=== PATIENT | male | born 1990 | race Caucasian/White ===

== ENCOUNTER 2016-10-28 13:49 | Emergency (ER) | payer BC ==
[2016-10-28 13:57] VITALS: BP 115/74
[2016-10-28] MEDS ORDERED: Ketorolac 60 MG/2 ML SDV IM ONE (14:06)
--- NOTE | 2016-10-28 14:14 | EDM.PDOC ---
ED HPI GENERAL MEDICAL PROBLEM - General Chief Complaint: General Stated Complaint: AMBULANCE Time Seen by Provider: 10/28/16 14:05 Source of Information: Reports: Patient History Limitations: Reports: No limitations - History of Present Illness INITIAL COMMENTS - FREE TEXT/NARRATIVE: History of present illness: [25-year-old male presenting with complaints of low back pain. Patient indicated he was sitting on the toilet and had a BM, and upon standing he had a crushing pain to his lumbar sacral region precluding him from bearing weight on his left leg. Patient indicates that the pain has never resolved it at this 2 or 3 and pressure at any time he increase his weight of his torso over his legs and balance stance the pain immediately starts increasing. Patient denies loss of bladder or bowel.] Review of systems: As per history of present illness and below otherwise all systems reviewed and negative. Past medical history: As per history of present illness and as reviewed below otherwise noncontributory. Surgical history: As per history of present illness and as reviewed below otherwise noncontributory. Social history: No reported history of drug or alcohol abuse. Family history: As per history of present illness and as reviewed below otherwise noncontributory. Physical exam: HEENT: Atraumatic, normocephalic, pupils reactive, negative for conjunctival pallor or scleral icterus, mucous membranes moist, throat clear, neck supple, nontender, trachea midline. Lungs: Clear to auscultation, breath sounds equal bilaterally, chest nontender. Heart: S1S2, regular, negative for clicks, rubs, or JVD. Abdomen: Soft, nondistended, nontender. Negative for masses or hepatosplenomegaly. Negative for costovertebral tenderness. Pelvis: Stable nontender. Genitourinary: Deferred. Rectal: Deferred. Extremities: Atraumatic, negative for cords or calf pain. Neurovascular unremarkable. Neuro: Awake, alert, oriented. Cranial nerves II through XII unremarkable. Cerebellum unremarkable. Motor and sensory unremarkable throughout. Exam nonfocal. Diagnostics: [X-ray of lumbar and sacral spines] Therapeutics: [60 mg IM] Impression: [back pain] Plan: [Norflex, with brief run] Definitive disposition and diagnosis as appropriate pending reevaluation and review of above. back Pain Score (Numeric/FACES): 2 - Related Data Allergies Allergy/AdvReac Type Severity Reaction Status Date / Time No Known Allergies Allergy Verified 10/28/16 13:53 Home Meds: Home Meds Orphenadrine [Norflex] 100 mg PO BID #30 tab.er 10/28/16 [Rx] ED ROS GENERAL - Review of Systems Review Of Systems: See Below (The history of present illness) ED EXAM, GENERAL - Physical Exam Exam: See Below (See history of present illness) Course - Vital Signs Last Recorded V/S: Last Vital Signs Temp 37.1 C 10/28/16 13:53 Pulse 83 10/28/16 13:53 Resp 20 10/28/16 13:53 BP 115/74 10/28/16 13:53 Pulse Ox 98 10/28/16 13:53 - Orders/Labs/Meds Orders: Active Orders 24 hr Category Date Time Status Orphenadrine [Norflex] Med 10/28/16 15:30 Ordered 60 mg IM Q12H Medication Orders Orphenadrine Citrate (Norflex) 60 mg IM Q12H [facility] Meds: Medications Generic Name Dose Route Start Last Admin Trade Name Freq PRN Reason Stop Dose Admin Orphenadrine Citrate 60 mg 10/28/16 15:30 Norflex IM Q12H SAPNA Discontinued Medications Generic Name Dose Route Start Last Admin Trade Name Freq PRN Reason Stop Dose Admin Ketorolac Tromethamine 60 mg 10/28/16 14:06 10/28/16 14:50 Toradol IM 10/28/16 14:07 60 mg ONETIME ONE Administration Departure - Departure Time of Disposition: 15:28 Disposition: Home, Self-Care 01 Condition: good Clinical Impression: Back pain Qualifiers: Back pain location: low back pain Chronicity: acute Back pain laterality: unspecified Sciatica presence: without sciatica Qualified Code(s): M54.5 - Low back pain Prescriptions: Orphenadrine [Norflex] 100 mg PO BID #30 tab.er Instructions: Muscle Strain, [id number], Pain Medicine Instructions, Easy-to- Read Additional Instructions: The following information is given to patients seen in the emergency department who are being discharged to home. This information is to outline your options for follow-up care. We provide all patients seen in our emergency department with a follow-up referral. The need for follow-up, as well as the timing and circumstances, are variable depending upon the specifics of your emergency department visit. If you don't have a primary care physician on staff, we will provide you with a referral. We always advise you to contact your personal physician following an emergency department visit to inform them of the circumstance of the visit and for follow-up with them and/or the need for any referrals to a consulting specialist. The emergency department will also refer you to a specialist when appropriate. This referral assures that you have the opportunity for follow-up care with a specialist. All of these measure are taken in an effort to provide you with optimal care, which includes your follow-up. Under all circumstances we always encourage you to contact your private physician who remains a resource for coordinating your care. When calling for follow-up care, please make the office aware that this follow-up is from your recent emergency room visit. If for any reason you are refused follow-up, please contact the [facility] Emergency Department at and asked to speak to the emergency department charge nurse. Take medication as instructed You may alternate ice and heat Followup with primary care provider one to 2 days Turned ED as needed as discussed - My Orders Last 24 Hours: My Active Orders 10/28/16 15:30 Orphenadrine [Norflex] 60 mg IM Q12H - Assessment/Plan Last 24 Hours: My Active Orders 10/28/16 15:30 Orphenadrine [Norflex] 60 mg IM Q12H
--- NOTE | 2016-10-28 15:05 | CR ---
EXAMINATION: Lumbar spine, sacrum and coccyx HISTORY: Pain COMPARISON: None TECHNIQUE: AP and lateral views of the lumbar spine, sacrum, coccyx FINDINGS: There is mild levocurvature of the lumbar spine, otherwise the spinal alignment appears no rmal. The vertebral body heights and disc spaces appear well-maintained. No fracture or dislocation. Bone mineralization is normal. IMPRESSION: No acute osseous abnormality identified.
== END 2016-10-28 16:09 | disposition home or self-care (01) ==
LOC: MW.ED 13:49
DX: M54.5 Low back pain (principal)
CPT/HCPCS: 72100; 72220; 96372; 99283; J1885; J2360

== ENCOUNTER → 2016-12-13 | Outpatient (CLI) | payer BC ==
[2016-12-13 09:48] LABS: CHLORIDE,CL 108 mmol/L (98-110); SODIUM,NA 139 mmol/L (136-146)
== END ==
LOC: MW.CHFP 08:50
PROVIDERS: ATTEND Family Medicine
DX: Z00.00 Encounter for general adult medical examination without abnormal findings (principal); R07.9 Chest pain, unspecified
CPT/HCPCS: 36415; 80053; 80061; 85027; 93005